=== PATIENT | male | born 1930 | race Caucasian/White ===

== ENCOUNTER → 2017-02-26 | Outpatient (CLI) | payer OTHER ==
[~2017-02-26] MED LIST: CELEBREX 200 M200 MG PO; CEPHALEXIN 500500 M1 PO; COREG PO; FISH OIL 1,0001 EAC5 PO; LISINOPRIL5 MG PO; LO-DOSE ASPIRIN81 M1 PO; PLAVIX 75 MG TA75 MG PO; PRENATAL FORMU1 EAC3 PO; VITAMINC500 PO
== END ==
LOC: CAT 02-24 11:08
DX: R59.0 Localized enlarged lymph nodes (principal); I70.0 Atherosclerosis of aorta; M43.16 Spondylolisthesis, lumbar region; M47.896 Other spondylosis, lumbar region; N28.89 Other specified disorders of kidney and ureter; R07.82 Intercostal pain; Z90.79 Acquired absence of other genital organ(s)